=== PATIENT | female | born 1985 | race Caucasian/White ===

== ENCOUNTER → 2021-01-15 12:09 | Outpatient (CLI) | payer BC, SELFPAY | PROVIDERS: PCP Nurse Practitioner Family; Visit Provider Nurse Practitioner Family | DX: Z20.822 Contact with and (suspected) exposure to COVID-19 (principal); U07.1 COVID-19 | CPT/HCPCS: U0003 ==

== ENCOUNTER → 2021-01-23 12:00 | Outpatient (CLI) | payer BC, SELFPAY ==
--- NOTE | 2021-01-23 12:06 | XR_ITS ---
PROCEDURE: XR CHEST PORTABLE CLINICAL HISTORY: COVID OUTPATIENT COMPARISON: No exams were available for comparison FINDINGS: The cardiomediastinal silhouette and pulmonary vascularity are within normal limits. The lungs are clear without infiltrates, suspicious nodules, or pleural effusions. No acute bony abnormalities. IMPRESSION: No acute findings. Dictated by: Srinath Fairbanks MD 01/23/2021 13:20 Srinath Fairbanks MD in OV 01/23/2021 13:20
== END ==
PROVIDERS: PCP Nurse Practitioner Family; Visit Provider Nurse Practitioner Family
DX: R06.02 Shortness of breath (principal); J45.909 Unspecified asthma, uncomplicated
CPT/HCPCS: 71045

== ENCOUNTER 2022-01-17 12:27 | Emergency (ER) | payer BC, SELFPAY ==
[2022-01-17 12:49] VITALS: BP 146/90; PULSE 88; RESP 16; TEMP 36.9; O2SAT 96; BMI 26.2
--- NOTE | 2022-01-17 12:57 | HMH.EDUTC ---
[facility] [place] Disposition Clinical Impression: Vaginal bleeding Elevated white blood cell count Qualifiers: Leukocytosis type: unspecified Qualified Code(s): D72.829 - Elevated white blood cell count, unspecified Disposition: Home, Self-Care Condition on Discharge: Good Instructions: DI for Vaginal Bleeding Additional Instructions: follow up with pcp antibiotics as ordered if symptoms worsen return or be seen in ed Prescriptions: Azithromycin [Zithromax 250mg tab] 250 mg PO DIRECTED #6 tab Transmission Status: Pending to [id number] Referrals: Gena Vega APRN [Primary Care Provider] - Time of Disposition: 13:50 Medical Decision Making - John Inquiry Pt receiving controlled substance: No Vital Signs: 01/17/22 12:49 Temperature 98.4 F Temperature Source Oral Pulse Rate [Radial] 88 Respiratory Rate 16 Blood Pressure [Right Arm] 146/90 H Blood Pressure Mean [Right Arm] 108 02 Sat by Pulse Oximetry 96 - Lab Data Lab Results 01/17/22 12:44: [facility] Negative 01/17/22 13:05: WBC 14.1 H, RBC 4.75, Hgb 14.8, Hct 44.1, MCV 92.9, MCH 31.2, MCHC 33.6, RDW 12.9, Plt Count 295, MPV 8.9, Neut % (Auto) 82.6 H, Lymph % (Auto) 10.8, [place] % (Auto) 5.1, Eos % (Auto) 0.9, Baso % (Auto) 0.8, Neut # (Auto) 11.6 H, Lymph # (Auto) 1.5, [place] # (Auto) 0.7, Eos # (Auto) 0.1, Baso # (Auto) 0.1 01/17/22 13:05: HCG, Quant < 2 01/17/22 13:39: Urine Color Yellow, Urine Appearance Clear, Urine pH 7.5, Ur Specific [place] 1.025, Urine Protein Negative, Urine Glucose (UA) Negative, Urine Ketones Negative, Urine Blood Trace, Urine Nitrate Negative, Urine Bilirubin Negative, Urine Urobilinogen 1, Ur Leukocyte Esterase Negative Result diagrams: 01/17/22 13:05 Orders (Tests/Meds): ORDERS Category Date Time Status Urine Culture Stat Micro 01/17/22 13:39 Ordered [facility] [place] HPI - General Chief complaint: Urgent [facility] Stated complaint: vaginal bleeding, lower back pain Time Seen by Provider: 01/17/22 12:57 Mode of Arrival: Ambulatory Source of Information: Patient Limitations: No Limitations Description of Symptoms (Recalled from Triage Doc. by RN): possible miscarriage HEENT Symptoms (Recalled from RN notes): No Resp Symptoms (Recalled from RN notes): No Skin Symptoms (Recalled from RN notes): No MS Symptoms (Recalled from RN notes): No Functional Status (Recalled from RN notes): wnl - History of Present Illness Provider Complaint: 36 yr old female presnets for day 10 of her period, pt states bleeding has been off and on. pt states she had a still in aug and has regualr periods since then. 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 - Related Data Previous Rx's Medication Instructions Recorded Azithromycin [Zithromax 250mg 250 mg PO DIRECTED #6 tab 01/17/22 tab] Allergies Allergy/AdvReac Type Severity Reaction Status Date / Time No Known Allergies Allergy Verified 01/17/22 12:53 - Worker's Comp Is this a Worker's Comp case?: No [facility] History - Hepatitis A Screen Attestation statement:: This patient has been screened for Hepatitis A risk factors. I have reviewed the patient's past medical history: Yes ROS Obtained: Yes Systems reviewed as appropriate & no additional complaints - Constitutional Constitutional: Reports system reviewed and no additional complaints, except as docu, Denies fever(s) - Eyes Eyes: Reports system reviewed and no additional complaints, except as docu, Denies dry eyes - ENT Ears, Nose, Mouth, and Throat: Reports system reviewed and no additional complaints, except as docu, Denies sore throat - Cardiovascular Cardiovascular: Reports system reviewed and no additional complaints, except as docu, Denies chest pain - Respiratory Respiratory: Reports system reviewed and no additional complaints, except as docu, Denies cough - Gastrointestinal Gastrointestingal: Reports: system rev
[2022-01-17 13:17] LABS: Basophils # 0.1 K/mm3 (0-0.2); Basophils % 0.8 % (0.1-2.0); Eosinophils # 0.1 K/mm3 (0.0-0.4); Eosinophils % 0.9 % (0.1-12.0); Hematocrit 44.1 % (37.0-47.0); Hemoglobin 14.8 g/dL (12.2-16.2); Lymphocytes # 1.5 K/mm3 (0.7-4.5); Lymphocytes % 10.8 % (10-50); Mean Corpuscular HGB Conc 33.6 g/dL (31.8-35.4); Mean Corpuscular Hemoglobin 31.2 pg (27.0-31.2); Mean Corpuscular Volume 92.9 fl (81-99); Mean Platelet Volume 8.9 fl (7.4-10.4); Monocytes # 0.7 K/mm3 (0.1-1.0); Monocytes % 5.1 % (1.7-9.3); Neutrophils # 11.6 K/mm3 (1.8-7.8); Neutrophils % 82.6 % (37.0-80.0); Platelet Count 295 K/mm3 (142-424); Red Blood Count 4.75 M/mm3 (4.20-5.40); Red Cell Distribution Width 12.9 % (11.5-17.5); White Blood Count 14.1 K/mm3 (4.8-10.8)
[2022-01-17 13:38] LABS: UTC Pregnancy Test, Urine Negative (Negative)
[2022-01-17 13:41] LABS: Apearance,Urine Clear (Clear); Color,Urine Yellow (Yellow); PH,Urine 7.5 (5.0-8.5); Protein,Urine Negative (Negative); Specific Gravity, Urine 1.025 (1.005-1.030)
[2022-01-17 13:42] LABS: Bilirubin,Urine Negative (Negative); Blood, Urine Trace (Negative); Glucose,Urine (UA) Negative (Negative); Ketones,Urine Negative (Negative)
[2022-01-17 13:43] LABS: UTC Leukocyte Esterase,Urine Negative (Negative); UTC Nitrate,Urine Negative (Negative); Urobilinogen,Urine 1 EU/dl (0.2)
[2022-01-17 13:45] LABS: HCG,Quantitative < 2 mIU/ml (0-5.42)
[2022-01-17 13:55] VITALS: BP 146/90; PULSE 88; RESP 16; TEMP 36.9
== END 2022-01-17 14:10 | disposition home or self-care (01) ==
PROVIDERS: Emergency Provider Nurse Practitioner Family; PCP Nurse Practitioner Family
DX: N93.9 Abnormal uterine and vaginal bleeding, unspecified (principal); D72.829 Elevated white blood cell count, unspecified
CPT/HCPCS: 81003; 81025; 84702; 85025; 99212; G0463

== ENCOUNTER 2022-09-14 09:52 | Emergency (ER) | payer BC, SELFPAY ==
[2022-09-14 09:55] VITALS: BP 113/87; PULSE 80; RESP 18; TEMP 36.8; O2SAT 98; BMI 25.0
--- NOTE | 2022-09-14 10:08 | EXP.UTC ---
Discharge Plan Disposition Patient Disposition: Home, Self-Care Prescriptions Prescriptions: New erythromycin 5 mg/gram (0.5 %) ointment 1 applic ophthalmic (eye) DAILY Qty: 3.5 0RF Rx Instructions: apply 1 cm ribbon in eye6 time a day for 7 days Referrals Follow up/Referrals: Gena Vega APRN [Primary Care Provider] - See instructions Activity Restrictions/Add. Instructions Additional Instructions/Restrictions: contact precautions discussed if worsen return or be seen in ed follow up with pcp Clinical Impressions Clinical Impression: Bertrand eye disease of left eye Instructions Patient Instructions: DI for Conjunctivitis Discharge [facility] [facility] [place] General Stated complaint: LT eye redness w/drainage Mode of Arrival: Ambulatory Source of Information: Patient Limitations: No Limitations Time Seen by Provider: 09/14/22 10:08 Description of Symptoms (Recalled from Triage Doc. by RN): PATIENT REDNESS AND SWELLING TO LEFT EYE SINCE YESTERDAY HEENT Symptoms (Recalled from RN notes): Yes Resp Symptoms (Recalled from RN notes): No Skin Symptoms (Recalled from RN notes): No MS Symptoms (Recalled from RN notes): No Functional Status (Recalled from RN notes): WNL History of Present Illness Provider Complaint: 37 yr old female presents for red eye with drainage. pt states when she woke this am it was matted shut Related Data Previous Rx's Medication Instructions Recorded erythromycin 5 mg/gram (0.5 %) eye 1 applic ophthalmic (eye) DAILY 09/14/22 ointment #3.5 grams Allergies Allergy/AdvReac Type Severity Reaction Status Date / Time No Known Allergies Allergy Verified 01/17/22 12:53 Worker's Comp Is this a Worker's Comp case?: No [facility] Disclaimer: The information contained in this section may have been updated after the patient was seen, as this information can be updated by other users. Medical History , OPTOMETRIC AIDE) Asthma Social History , OPTOMETRIC AIDE) Smoking Status: Unknown if ever smoked alcohol intake: never current occupational status: employed Travel in the last 8 weeks: None ROS Obtained: Yes All systems reviewed & no additional complaints except as documented Constitutional Constitutional: Reports system reviewed and no additional complaints, except as documented and Reports as per HPI Eyes Eyes: Reports system reviewed and no additional complaints, except as documented, Reports as per HPI, Reports eye discharge and Reports irritation ENT Ears, Nose, Mouth, and Throat: Reports system reviewed and no additional complaints, except as documented Cardiovascular Cardiovascular: Reports system reviewed and no additional complaints, except as documented Respiratory Respiratory: Reports system reviewed and no additional complaints, except as documented Gastrointestinal Gastrointestingal: Reports system reviewed and no additional complaints, except as documented Musculoskeletal Musculoskeletal: Reports system reviewed and no additional complaints, except as documented Integumentary/Breasts Skin/Breast: Reports system reviewed and no additional complaints, except as documented Neurologic Neurologic: Reports system reviewed and no additional complaints, except as documented Endocrine Endocrine: Reports system reviewed and no additional complaints, except as documented Hematologic/Lymphatic Henatologic/Lymphatic: Reports system reviewed and no additional complaints, except as documented Allergic/Immunologic Allergic/Immunologic: Reports system reviewed and no additional complaints, except as documented Physical Exam General General appearance: alert and in no apparent distress Head Head exam: atraumatic, normocephalic and normal inspection Eye Eye exam: Present PERRL, conjunctival redness and discharge ENT ENT exam: Present normal exam, normal oropharynx,
[2022-09-14 10:13] VITALS: BP 113/87; PULSE 80; RESP 18; TEMP 36.8; O2SAT 98
== END 2022-09-14 10:16 | disposition home or self-care (01) ==
PROVIDERS: Emergency Provider Nurse Practitioner Family; PCP Nurse Practitioner Family
DX: H10.9 Unspecified conjunctivitis (principal)
CPT/HCPCS: 99212; 99213; G0463

== ENCOUNTER 2024-03-03 07:24 | Emergency (ER) | payer OTHER, SELFPAY ==
[2024-03-03 07:33] VITALS: BP 125/81; PULSE 86; RESP 20; TEMP 36.6; O2SAT 98; BMI 20.3
--- NOTE | 2024-03-03 07:35 | PC.NURSE ---
DR JUARES AT BEDSIDE
--- NOTE | 2024-03-03 07:44 | HMH.EDGENADL ---
Discharge Plan Disposition Patient Disposition: Home, Self-Care Prescriptions Prescriptions: New nitrofurantoin monohyd/m-cryst 100 mg capsule 100 mg PO BID 5 Days Qty: 10 0RF Rx Instructions: must administer with a meal/food No Action erythromycin 5 mg/gram (0.5 %) ointment 1 applic ophthalmic (eye) DAILY Qty: 3.5 0RF Rx Instructions: apply 1 cm ribbon in eye6 time a day for 7 days Referrals Follow up/Referrals: Evelin Pringle MD [Primary Care Provider] - See instructions Activity Restrictions/Add. Instructions Additional Instructions/Restrictions: Continue to take your Zofran and Phenergan at home as needed for nausea vomiting and keep yourself well-hydrated with sugar and salt containing fluids such as Gatorade or Powerade. Return with any significant worsening of your symptoms. Clinical Impressions Clinical Impression: Acute dehydration, Nausea & vomiting, Second trimester , Asymptomatic bacteriuria during Instructions Patient Instructions: DI for Diarrhea and Traveler's Diarrhea -- Adult, DI for Diarrhea and Traveler's Diarrhea -- Child, DI for Nausea -- Adult, DI for Nausea -- Child Discharge ED Provider: Jalyn Watson General Adult HPI General Chief complaint: Nausea/Vomiting/Diarrhea Stated complaint: weakness, lightheaded (22wks ) Time Seen by Provider: 03/03/24 07:35 Mode of Arrival: Ambulatory Source of Information: Patient Limitations: No Limitations Description of Symptoms (Recalled from ER Triage Doc. by RN): pt to ed c/o n/v since friday. pt states she is 22w . pt called her OB yesterday and was prescribed zofran and phenergan; pt denies relief. pt denies abd pain/vaginal bleeding. History of Present Illness HPI narrative: Patient is a 38-year-old female presents today with nausea and vomiting and lightheadedness and weakness. She is a A2 at 22 weeks gestational age. She states that she has had morning sickness with all of her pregnancies. This is no exception she has had nausea and vomiting throughout the entire course. States it has gotten worse over the last several days she was prescribed Zofran and promethazine without any significant improvement. She denies any abdominal pain. Denies any vaginal bleeding vaginal discharge or loss of fluid. Still having positive movements. Other than feeling very drained no other complaints at the moment. Related Data Previous Rx's Medication Instructions Recorded erythromycin 5 mg/gram (0.5 %) eye 1 applic ophthalmic (eye) DAILY 09/14/22 ointment #3.5 grams nitrofurantoin 100 mg PO BID 5 days #10 caps 03/03/24 monohydrate/macrocrystals 100 mg capsule Allergies Allergy/AdvReac Type Severity Reaction Status Date / Time No Known Allergies Allergy Verified 01/17/22 12:53 [facility] Disclaimer: The information contained in this section may have been updated after the patient was seen, as this information can be updated by other users. Medical History , POSTDOCTORAL SCHOLAR) Asthma Social History (Updated 09/14/22 @ 10:14 by Mee Willis ([facility]), POSTDOCTORAL SCHOLAR) Smoking Status: Never smoker alcohol intake: never current occupational status: employed Travel in the last 8 weeks: None ROS Obtained: Yes All systems reviewed & no additional complaints except as documented Physical Exam General General appearance: alert and in no apparent distress Respiratory Respiratory exam: Present normal lung sounds bilaterally Cardiovascular Cardiovascular exam: Present regular rate and normal rhythm Abdominal Exam Abdominal exam: Present soft; Absent distention or tenderness Neurological Exam Neurological exam: Present alert and oriented X3 Medical Decision Making John Inquiry Pt receiving controlled substance: No Vital Signs: 03/03/24 07:33 03/03/24 08:00 03/03/24 08:30 Temperature 97.8 F Temperature Source Oral Pulse Rate 92 H 77 Pulse Rate [Left Radial] 86 Respiratory Rate 20 Blood Pressure 108/76 L 101/68 L Blood Pressure [Right Arm] 125/81 Blood Pressure Mean Blood Pressure Mean [Right Arm] 95 02 Sat by Pulse Oximetry 98 97 95 Oxygen Delivery Method Room Air Room Air Room Air 03/03/24 09:00 03/03/24 09:30 Temperature Temperature Source Pulse Rate 74 71 Pulse Rate [Left Radial] Respiratory Rate Blood Pressure 106/67 L 113/68 Blood Pressure [Right Arm] Blood Pressure Mean 83 Blood Pressure Mean [Right Arm] 02 Sat by Pulse Oximetry 95 97 Oxygen Delivery Method Room Air Lab Data Lab results reviewed: Yes I reviewed the patient's lab results. Lab Results 03/03/24 07:47: Urine Color Yellow, Urine Appearance Cloudy, Urine pH 6.0, Ur Specific [place] 1.025, Urine Protein 1+, Urine Glucose (UA) Negative, Urine Ketones Negative, Urine Blood Negative, Urine Nitrate Negative, Urine Bilirubin 1+ A, Urine Urobilinogen 2.0, Ur Leukocyte Esterase Trace, Urine RBC None, Urine WBC Occasional, Ur Squamous Epith Cells 5-10, Calcium Oxalate Crystal Trace, Urine Bacteria Trace 03/03/24 07:53: WBC 11.2 H, RBC 4.18 L, Hgb 12.2, Hct 37.1, MCV 88.8, MCH 29.3, MCHC 33.0, RDW 14.0, Plt Count 224, MPV 9.1, Neut % (Auto) 82.9 H, Lymph % (Auto) 9.5 L, [place] % (Auto) 5.1, Eos % (Auto) 2.1, Baso % (Auto) 0.4, Neut # (Auto) 9.3 H, Lymph # (Auto) 1.1, [place] # (Auto) 0.6, Eos # (Auto) 0.2, Baso # (Auto) 0.0, Sodium 133 L, Potassium 3.4 L, Chloride 104, Carbon Dioxide 22, Anion Gap 10.4, BUN 5 L, Creatinine 0.40 L, Estimated Creat Clear 179, Estimated GFR 177, Est GFR ( Amer) 214, Glucose 94, Calcium 8.6, Phosphorus 3.6, Magnesium 1.7, Total Bilirubin 0.5, AST 24, ALT 16, Alkaline Phosphatase 62, Total Protein 6.7, Albumin 3.6, Globulin 3.1, Albumin/Globulin Ratio 1.2 03/03/24 07:53 03/03/24 07:53 Orders (Tests/Meds): ED MEDICATIONS Discontinued Medications Generic Name Dose Route Start Last Admin Trade Name Freq PRN Reason Stop Dose Admin Lactated Ringer's 1,000 mls @ 999 mls/hr 03/03/24 07:45 03/03/24 07:58 Lactated Ringer's 1000 Ml Bag IV 03/03/24 08:45 999 mls/hr .Q1H1M [place] Administration Ondansetron HCl 4 mg 03/03/24 07:43 03/03/24 07:58 Ondansetron 4mg/2ml Vial IV 03/03/24 07:44 4 mg ONCE ONE Administration ORDERS Category Date Time Status POCUS Point of Care (ER Only) Stat Exams 03/03/24 07:35 Completed CBC w/Auto Diff [Complete Blood Count Auto Diff] Stat Lab 03/03/24 07:53 Completed CMP [Comprehensive Metabolic Panel] Stat Lab 03/03/24 07:53 Completed Magnesium Stat Lab 03/03/24 07:53 Completed Phosphorous Stat Lab 03/03/24 07:53 Completed UA [Urinalysis and Microscopic] Stat Lab 03/03/24 07:47 Completed Medical Decision Narrative: 38-year-old female with a benign abdominal exam presented with nausea vomiting in setting of . Limited bedside ultrasound shows a single living IUP consistent with dates no concerns there. Abdominal exam is also benign not consistent with surgical pathology. Most likely this is either viral in etiology or on spectrum of nausea vomiting and hyperemesis in the setting of . Basic blood work including electrolytes have been ordered and IV fluid as well as Zofran have been administered will reassess. Reassessment 951 patient appears very well clinically she is starting to feel better with fluid administration about half of her 1 L bolus has completed will complete that and then discharge her. She has been tolerating p.o. while she is in the emergency department. Serial abdominal exams are benign and not concerning. She also has asymptomatic bacteriuria will treat with nitrofurantoin. This was explained to her. Labs otherwise unremarkable aside from mild hypokalemia and hyponatremia. This should be corrected with normal diet readministration. Patient was discharged improved and stable condition with return precautions emphasized. Procedures Miscellaneous Procedure Procedure Performed: Limited OB ultrasound Indication: Nausea vomiting in setting of Identified structures: [-Uterus -Left adnexa -Right adnexa -Pouch of Donnie] Findings: Uterus: Definitive IUP FHR: 145 Right adnexa: No free fluid Left adnexa: No free fluid Cul de sac: No free fluid Impression: -IUP: Present - heart rate: 145 -Ectopic : Absent -Free fluid: Absent Images were saved to permanent archive The study was technically adequate [facility] Transabdominal: [id number] This study was performed by me, and I personally interpreted all images/videos. Based on my clinical judgement, these images were adequate and did not necessitate further imaging. Critical Care Critical Care Time Critical Care Time: No
--- NOTE | 2024-03-03 07:55 | PC.NURSE ---
Pt provided with warm blanket, and water. No other needs voiced and call light within reach.
[2024-03-03] MEDS: ONDANSETRON 4MG/2ML VIAL 4 MG IV (07:58)
[2024-03-03] MEDS: LACTATED RINGERS 1000ML 1,000 ML 999 ML IV (07:58)
[2024-03-03 08:00] VITALS: BP 108/76; PULSE 92; O2SAT 97
[2024-03-03 08:02] LABS: Basophils % 0.4 % (0.1-2.0); Eosinophils # 0.2 K/mm3 (0.0-0.4); Eosinophils % 2.1 % (0.1-12.0); Hematocrit 37.1 % (37.0-47.0); Hemoglobin 12.2 g/dL (12.2-16.2); Lymphocytes # 1.1 K/mm3 (0.7-4.5); Lymphocytes % 9.5 % (10-50); Mean Corpuscular Hemoglobin 29.3 pg (27.0-31.2); Mean Corpuscular Volume 88.8 fl (81-99); Mean Platelet Volume 9.1 fl (7.4-10.4); Monocytes # 0.6 K/mm3 (0.1-1.0); Monocytes % 5.1 % (1.7-9.3); Neutrophils # 9.3 K/mm3 (1.8-7.8); Neutrophils % 82.9 % (37.0-80.0); Platelet Count 224 K/mm3 (142-424); Red Blood Count 4.18 M/mm3 (4.20-5.40); White Blood Count 11.2 K/mm3 (4.8-10.8)
[2024-03-03 08:04] LABS: Chloride 104 mmol/L (98-107); Potassium 3.4 mmoL/L (3.5-5.1); Sodium 133 mmol/L (136-145)
[2024-03-03 08:06] LABS: Blood Urea Nitrogen 5 mg/dl (7-17); Creatinine Clearance Estimated 179 mL/min (50-200); Estimated Glomerular Filt Rate 177 ml/min (>60); GFR (African American) 214 ML/MIN (>60)
[2024-03-03 08:07] LABS: Alanine Aminotransferase 16 U/L (12-78); Albumin Level 3.6 g/dl (3.5-5.0); Albumin/Globulin Ratio 1.2 (1.1-1.8); Alkaline Phosphatase 62 U/L (38-126); Anion Gap 10.4 mEq/L (5-15); Aspartate Amino Transferase 24 U/L (14-36); Bilirubin,Total 0.5 mg/dl (0.2-1.3); Calcium 8.6 mg/dl (8.4-10.2); Carbon Dioxide 22 mmol/L (22.0-30.0); Globulin 3.1 g/dL (1.3-3.2); Glucose 94 mg/dl (74-100); Magnesium 1.7 mg/dl (1.6-2.3); Phosphorous 3.6 mg/dl (2.5-4.5); Total Protein,Serum 6.7 g/dl (6.3-8.2)
[2024-03-03 08:30] VITALS: BP 101/68; PULSE 77; O2SAT 95
[2024-03-03 08:38] LABS: Microscopic, Urine URINE MICROSCOPIC (MICROSCOPIC)
[2024-03-03 08:40] LABS: Appearance,Urine CLOUDY (Clear); Blood, Urine Negative (Negative); Color,Urine YELLOW (Yellow); Glucose,Urine (UA) Negative (Negative); Ketones,Urine Negative (Negative); Leukocyte Esterase,Urine TRACE (Negative); Nitrate,Urine Negative (Negative); Protein,Urine 1+ (Negative); Specific Gravity, Urine 1.025 (1.005-1.030)
[2024-03-03 08:43] LABS: Bilirubin,Urine 1+ (Negative)
[2024-03-03 09:00] VITALS: BP 106/67; PULSE 74; O2SAT 95
[2024-03-03 09:00] LABS: Bacteria,Urine Trace /lpf; Calcium Oxalate Crystals,Urine Trace /lpf; WBC,Urine Occasional #/hpf (0-3)
--- NOTE | 2024-03-03 09:22 | PC.NURSE ---
DR JUARES AT BEDSIDE TO REEVALUATE PT
[2024-03-03 09:30] VITALS: BP 113/68; PULSE 71; O2SAT 97
--- NOTE | 2024-03-03 09:48 | PC.NURSE ---
Pt ambulatory to bathroom. No other needs voiced at this time. Call light remains within reach.
--- NOTE | 2024-03-03 09:54 | PC.NURSE ---
Pt provided with water and crackers for PO challenge
[2024-03-03 10:24] VITALS: BP 108/70; PULSE 70; RESP 20; TEMP 36.7; O2SAT 98
== END 2024-03-03 10:24 | disposition home or self-care (01) ==
PROVIDERS: Emergency Provider Student in an Organized Health Care Education/Training Program; PCP Family Medicine
DX: O21.1 Hyperemesis gravidarum with metabolic disturbance; O23.91 Unspecified genitourinary tract infection in pregnancy, first trimester; R82.71 Bacteriuria; Z3A.22 22 weeks gestation of pregnancy
CPT/HCPCS: 80053; 81001; 83735; 84100; 85025; 96361; 96374; 99284; J2405; J7120